=== PATIENT | male | born 1940 | race Caucasian/White ===

== ENCOUNTER 2016-06-21 11:49 | Inpatient (IN) | payer MEDICARE ==
[~2016-06-21] VITALS: Ht 167.6 cm; Wt 102.8 kg
[~2016-06-21 11:49] MED LIST: ASPI325T PO; DILTSR120 PO; DIOV80TA4 PO; GLIP5 PO; LOVA40TA PO; METF-324 PO; OMEP20TA PO; ZOLP10TA3 PO
[2016-06-21] MEDS ORDERED: PROPOFOL 200 MG/20 ML AMP IV ONE (12:00)
[2016-06-21] MEDS ORDERED: PHENYLEPH/NS 1000 MCG/10 ML SYR IV ONE (12:00)
[2016-06-21] MEDS ORDERED: ONDANSETRON HCL 4 MG/2 ML VIAL IV PUSH ONE (12:00)
[2016-06-21] MEDS ORDERED: SUGAMMADEX SODIUM 200 MG/2 ML VIAL IV PUSH ONE ×2 (12:00)
[2016-06-21] MEDS ORDERED: LACTATED RINGER'S 1000 ML INJ 1,000 ML IV ONE (12:00)
[2016-06-21 12:01] VITALS: BP 120/73; PULSE 83; RESP 16; TEMP 99.6; O2SAT 98
[2016-06-21 12:19] LABS: BLOOD, URINE NEG (NEG); GLUCOSE,URINE NEG (NEG); KETONE, URINE NEG (NEG); NITRITE,URINE NEG (NEG); PH, URINE 5.5 (5.0-8.5)
[2016-06-21] MEDS ORDERED: VALS1TAB64 PO (12:19)
[2016-06-21] MEDS ORDERED: PIOG30TA4 PO (12:19)
[2016-06-21] MEDS ORDERED: GABA300C5 PO ×2 (12:19→18:48)
[2016-06-21] MEDS ORDERED: OMEP20TA PO (12:19)
[2016-06-21] MEDS ORDERED: ZOLP10TA3 PO (12:19)
[2016-06-21] MEDS ORDERED: VITA10003 PO (12:19)
[2016-06-21] MEDS ORDERED: MULT1CHW70 (12:19)
[2016-06-21] MEDS ORDERED: POTA75TA PO (12:19)
[2016-06-21] MEDS ORDERED: GLIP5TAB8 PO (12:19)
[2016-06-21] MEDS ORDERED: VITA100T15 PO (12:19)
[2016-06-21] MEDS ORDERED: LOVA40TA PO (12:19)
[2016-06-21] MEDS ORDERED: STOO100C (12:19)
[2016-06-21] MEDS ORDERED: ASPI81CH CHEW (12:19)
[2016-06-21] MEDS ORDERED: FURO40TA PO (12:19)
[2016-06-21] MEDS ORDERED: DICL1CAP3 PO (12:19)
--- NOTE | 2016-06-21 12:25 | PD ---
HPI Chief Complaint: Complaint Time Seen by Provider: 12:19 Travel History International Travel<30 days: No Contact w/Intl Traveler<30days: No Traveled to known affect area: No History of Present Illness HPI Patient is a 75-year-old male who presents emergency for evaluation of fevers, abdominal pain, fatigue. Patient's daughter is present with him in the room. Daughter states on Friday patient started feeling more fatigued, he started having fevers yesterday approximately 6:30 PM his fever was 101.8, 11:30 PM last night his fever was 101.2, and at 6:30 AM his fever was 101.8. Patient was given acetaminophen after each elevated temperature. Patient reports lower abdominal pain worse on the right than the left as well as low back pain. He denies any history of chronic back pain. Patient had a knee replacement done on 05/20/16, after that he developed cellulitis and was on a 10 day course of Levaquin. Daughter reports significant improvement in the right knee since the surgery in regards to the edema and cellulitis. He states that he was too tired to complete his full course of physical therapy at home. He denies any dysuria but reports frequency feeling as if he has to go the bathroom immediately after he drinks anything. He reports the abdominal pain as a 3-4 out of 10 and states it's crampy and achy. PFSH Past Medical History Arthritis: Yes Atrial Fibrillation: Yes Cancer: No High Cholesterol: Yes Congestive Heart Failure: Yes Diabetes: Yes Patient Takes Glucophage: No Diminished Hearing: No GERD: Yes Hepatitis: No Hiatal Hernia: No Hypertension: Yes Insomnia: Yes Neurologic: Yes (essential tremor) Sleep Apnea: Yes (patient is not on CPAP) Thyroid Disease: No Past Surgical History Eye Surgery: Yes (left eye cataract removal;) Genitourinary Surgery: Yes (VASECTOMY) Pacemaker: No Other Surgery: Yes (right knee replacement, left shoulder repair) Family History Family History: Negative Social History Alcohol Use: No Tobacco Use: No Substance Use: No Allergies-Medications (Allergen,Severity, Reaction): Coded Allergies: No Known Allergies (Verified , 06/21/16) Reported Meds & Prescriptions Reported Meds & Active Scripts Active Reported Zolpidem (Zolpidem Tartrate) 10 Mg Tab 10 Mg PO HS PRN Vitamin B12 (Cyanocobalamin) 100 Mcg Tab 100 Mcg PO DAILY Multivitamin Adult (Multiple Vitamins W/ Minerals) 1 Chw Chw Potassium 75 Mg Tab 550 Mg PO DAILY Valsartan 80 Mg Tab 80 Mg PO DAILY Lovastatin 40 Mg Tab 40 Mg PO DAILY Gabapentin 300 Mg Cap 300 Mg PO BID Furosemide 40 Mg Tab 40 Mg PO DAILY Zorvolex (Diclofenac) 18 Mg Cap 75 Mg PO TID Pioglitazone (Pioglitazone HCl) 30 Mg Tab 30 Mg PO DAILY Omeprazole 20 Mg Tab 20 Mg PO DAILY Glipizide 5 Mg Tab 7.5 Mg PO BIDAC Take 30 minutes before a meal Stool Softener (Docusate Sodium) 100 Mg Cap Vitamin D-3 (Cholecalciferol) 1,000 Unit Tab 3,000 Units PO DAILY Aspirin 81 Mg Chew 81 Mg CHEW DAILY Review of Systems Except as stated in HPI: all other systems reviewed are Neg General / Constitutional: Positive: Fever, Chills, Other (fatigue) HENT: No: Headaches, Lightheadedness, Congestion Cardiovascular: No: Chest Pain or Discomfort Respiratory: No: Cough, Shortness of Breath Gastrointestinal: Positive: Abdominal Pain, No: Nausea, Vomiting, Diarrhea Genitourinary: Positive: Frequency Musculoskeletal: Positive: Myalgias Neurologic: Positive: Weakness, No: Dizziness, Syncope, Focal Abnormalities Physical Exam Narrative GENERAL: Obese, well-developed, alert, elderly male. Resting comfortably in no acute distress. Daughter at bedside. SKIN: Warm and dry. Healing incision to anterior right knee, mild erythema noted to the right lower leg. HEAD: Atraumatic. Normocephalic. EYES: Pupils equal and round. No scleral icterus. No injection or drainage. ENT: No nasal bleeding or discharge. Mucous membranes pink and moist. NECK: Trachea midline. No JVD. CARDIOVASCULAR: Regular rate and rhythm. No murmur appreciated. RESPIRATORY: No accessory muscle use. Clear to auscultation. Breath sounds equal bilaterally. GASTROINTESTINAL: Abdomen obese, soft, tender to palpation in right and left lower quadrants, the right is worse than the left. Positive bowel sounds. MUSCULOSKELETAL: No obvious deformities. No clubbing. No cyanosis. 1+ edema to bilateral lower extremities. Positive pedal pulses. NEUROLOGICAL: Awake and alert. No obvious cranial nerve deficits. Motor grossly within normal limits. Normal speech. PSYCHIATRIC: Appropriate mood and affect; insight and judgment normal. Data Data Last Documented VS Vital Signs Date Time Temp Pulse Resp B/P Pulse Ox O2 Delivery O2 Flow Rate FiO2 06/21/16 14:08 76 20 91/54 96 06/21/16 13:19 Auto-Vent 06/21/16 12:01 99.6 Orders Urinalysis - C+S If Indicated (06/21/16 12:03) Complete Blood Count With Diff (06/21/16 12:16) Comprehensive Metabolic Panel (06/21/16 12:16) Lactic Acid Sepsis Protocol (06/21/16 12:16) Blood Culture (06/21/16 12:16) Chest, Single Ap (06/21/16 12:16) Blood Glucose (06/21/16 12:16) Ecg Monitoring (06/21/16 12:16) Iv Access Insert/Monitor (06/21/16 12:16) Oximetry (06/21/16 12:16) Oxygen Administration (06/21/16 12:16) Acetaminophen (Tylenol) (06/21/16 12:30) Ct Abd/Pel W Iv Contrast(Rout) (06/21/16 12:16) Influenzae A/B Antigen (06/21/16 12:58) Sodium Chlorid 0.9% 500 Ml Inj (Ns 500 M (06/21/16 13:30) Iohexol 350 Inj (Omnipaque 350 Inj) (06/21/16 13:34) Admit Order (Ed Use Only) (06/21/16 14:08) Ampicillin-Sulbactam Inj (Unasyn Inj) (06/21/16 14:15) Labs Laboratory Tests Test 06/21/16 06/21/16 11:55 12:30 Urine Collection Type CLEAN CATCH Urine Color YELLOW Urine Turbidity CLEAR Urine pH 5.5 Urine Specific [place] 1.023 Urine Protein TRACE mg/dL Urine Glucose (UA) NEG mg/dL Urine Ketones NEG mg/dL Urine Occult Blood NEG Urine Nitrite NEG Urine Bilirubin NEG Urine Leukocyte Esterase NEG Urine RBC 0-3 /hpf Urine WBC 0-2 /hpf Urine Squamous Epithelial > 8 /hpf Cells Microscopic Urinalysis Comment CULT NOT INDICATED Urine Collection Time 11:55 White Blood Count 12.8 TH/MM3 Red Blood Count 3.88 MIL/MM3 Hemoglobin 10.7 GM/DL Hematocrit 32.5 % Mean Corpuscular Volume 83.8 FL Mean Corpuscular Hemoglobin 27.6 PG Mean Corpuscular Hemoglobin 32.9 % Concent Red Cell Distribution Width 18.8 % Platelet Count 146 TH/MM3 Mean Platelet Volume 8.5 FL Neutrophils (%) (Auto) 83.0 % Lymphocytes (%) (Auto) 7.9 % Monocytes (%) (Auto) 8.4 % Eosinophils (%) (Auto) 0.3 % Basophils (%) (Auto) 0.4 % Neutrophils # (Auto) 10.6 TH/MM3 Lymphocytes # (Auto) 1.0 TH/MM3 Monocytes # (Auto) 1.1 TH/MM3 Eosinophils # (Auto) 0.0 TH/MM3 Basophils # (Auto) 0.1 TH/MM3 CBC Comment AUTO DIFF Differential Comment AUTO DIFF CONFIRMED Sodium Level 142 MEQ/L Potassium Level 3.6 MEQ/L Chloride Level 105 MEQ/L Carbon Dioxide Level 27.2 MEQ/L Anion Gap 10 MEQ/L Blood Urea Nitrogen 25 MG/DL Creatinine 1.60 MG/DL Estimat Glomerular Filtration 42 ML/MIN Rate Random Glucose 114 MG/DL Lactic Acid Level 1.9 mmol/L Calcium Level 8.8 MG/DL Total Bilirubin 1.1 MG/DL Aspartate Amino Transf 15 U/L (AST/SGOT) Alanine Aminotransferase 12 U/L (ALT/SGPT) Alkaline Phosphatase 90 U/L Total Protein 6.9 GM/DL Albumin 2.9 GM/DL MDM Medical Decision Making Medical Screen Exam Complete: Yes Emergency Medical Condition: Yes Interpretation(s) Last Impressions Chest X-Ray 06/21/166 Signed Impressions: Service Date/Time: Tuesday, June 21, 2016 12:26 - CONCLUSION: No acute disease. Tony Morales MD FACR Vital Signs Date Time Temp Pulse Resp B/P Pulse Ox O2 Delivery O2 Flow Rate FiO2 06/21/16 13:19 95 Auto-Vent 06/21/16 12:01 99.6 83 16 120/73 98 Last Impressions Chest X-Ray 06/21/16 1216 Signed Impressions: Service Date/Time: Tuesday, June 21, 2016 12:26 - CONCLUSION: No acute disease. Tony Morales MD FACR Laboratory Tests Test 06/21/16 06/21/16 11:55 12:30 Urine Collection Type CLEAN CATCH Urine Color YELLOW Urine Turbidity CLEAR Urine pH 5.5 Urine Specific [place] 1.023 Urine Protein TRACE mg/dL Urine Glucose (UA) NEG mg/dL Urine Ketones NEG mg/dL Urine Occult Blood NEG Urine Nitrite NEG Urine Bilirubin NEG Urine Leukocyte Esterase NEG Urine RBC 0-3 /hpf Urine WBC 0-2 /hpf Urine Squamous Epithelial > 8 /hpf Cells Microscopic Urinalysis Comment CULT NOT INDICATED Urine Collection Time 11:55 White Blood Count 12.8 TH/MM3 Red Blood Count 3.88 MIL/MM3 Hemoglobin 10.7 GM/DL Hematocrit 32.5 % Mean Corpuscular Volume 83.8 FL Mean Corpuscular Hemoglobin 27.6 PG Mean Corpuscular Hemoglobin 32.9 % Concent Red Cell Distribution Width 18.8 % Platelet Count 146 TH/MM3 Mean Platelet Volume 8.5 FL Neutrophils (%) (Auto) 83.0 % Lymphocytes (%) (Auto) 7.9 % Monocytes (%) (Auto) 8.4 % Eosinophils (%) (Auto) 0.3 % Basophils (%) (Auto) 0.4 % Neutrophils # (Auto) 10.6 TH/MM3 Lymphocytes # (Auto) 1.0 TH/MM3 Monocytes # (Auto) 1.1 TH/MM3 Eosinophils # (Auto) 0.0 TH/MM3 Basophils # (Auto) 0.1 TH/MM3 CBC Comment AUTO DIFF Sodium Level 142 MEQ/L Potassium Level 3.6 MEQ/L Chloride Level 105 MEQ/L Carbon Dioxide Level 27.2 MEQ/L Anion Gap 10 MEQ/L Blood Urea Nitrogen 25 MG/DL Creatinine 1.60 MG/DL Estimat Glomerular Filtration 42 ML/MIN Rate Random Glucose 114 MG/DL Lactic Acid Level 1.9 mmol/L Calcium Level 8.8 MG/DL Total Bilirubin 1.1 MG/DL Aspartate Amino Transf 15 U/L (AST/SGOT) Alanine Aminotransferase 12 U/L (ALT/SGPT) Alkaline Phosphatase 90 U/L Total Protein 6.9 GM/DL Albumin 2.9 GM/DL Vital Signs Date Time Temp Pulse Resp B/P Pulse Ox O2 Delivery O2 Flow Rate FiO2 06/21/16 12:01 99.6 83 16 120/73 98 Differential Diagnosis Sepsis versus influenza versus pneumonia versus postop infection versus other Narrative Course Patient is a 75-year-old male who presented to emergency department with his daughter for evaluation of fevers, fatigue, abdominal pain. Patient started feeling poorly on Friday, he developed a fever last night. Patient had knee surgery approximately one month ago after which she developed cellulitis to the right knee and leg he was treated with a 10 day course of Levaquin at the rehabilitation center. Daughter states this has improved significantly however there is still an area of erythema to the right hinds. Patient's temperatures at home have been up to 101.8, his had been giving him acetaminophen which he responded well to. Patient was mildly febrile on presentation today. He was given acetaminophen by mouth. Labs and imaging ordered and pending. IV access initiated. CBC shows a mildly elevated white count with left shift, chemistry with slightly elevated BUN and creatinine, lactic acid is 1.9, urinalysis is unremarkable. Chest x-ray is unremarkable. Influenza was negative. CT scan of the abdomen and pelvis shows inflammatory changes in the right lower quadrant with a dilated appendix consistent with appendicitis. Patient was given dose of Zosyn. Dr. Molina, general surgeon was paged and notified of CT results. He will admit patient to his service. Patient to be transferred to the main campus. Discussed findings with patient and his daughter, all questions answered. Patient has not had anything to eat today, he had small intake of fluids this morning. Patient was given a total of 1500 cc of IV fluids. Vital signs are stable, he is afebrile currently. Diagnosis Primary Impression: Acute appendicitis Qualified Code: K35.80 - Acute appendicitis, unspecified acute appendicitis type Admitting Information Admitting Physician Requests: Admit Condition: Stable Pari Foreman Jun 21, 2016 12:25
[2016-06-21 12:29] LABS: METHOD OF COLLECTION CLEAN CATCH; URINE COLOR YELLOW (YELLW/STRAW); WBC, URINE 0-2 /hpf (0-5)
[2016-06-21 12:30] LABS: COMMENT (UR) CULT NOT INDICATED; CULTURE IF INDICATED CULT NOT INDICATED; RBC, URINE 0-3 /hpf (0-3); SQUAMOUS EPITHELIAL CELL URINE > 8 /hpf (0-5)
[2016-06-21] MEDS ORDERED: ACETAMINOPHEN 325 MG TAB PO ONE (12:30)
[2016-06-21 12:53] LABS: AUTOMATED NEUTROPHIL # 10.6 TH/MM3 (1.8-7.7); BASOPHIL # 0.1 TH/MM3 (0-0.2); BASOPHIL % 0.4 % (0.0-2.0); EOSINOPHIL % 0.3 % (0.0-4.0); HEMATOCRIT 32.5 % (39.0-51.0); HEMO FLAGS AUTO DIFF; LYMPH % 7.9 % (9.0-44.0); MEAN CELL VOLUME 83.8 FL (80.0-100.0); MEAN CORPUSCULAR HEMOGLOBIN 27.6 PG (27.0-34.0); MEAN CORPUSCULAR HGB CONC 32.9 % (32.0-36.0); MONO % 8.4 % (0.0-8.0); PLATELET COUNT 146 TH/MM3 (150-450); RED BLOOD COUNT 3.88 MIL/MM3 (4.50-5.90); RED CELL DISTRIBUTION WIDTH 18.8 % (11.6-17.2); WHITE BLOOD COUNT 12.8 TH/MM3 (4.0-11.0)
--- NOTE | 2016-06-21 12:54 | RADHPO ---
EXAM DATE/TIME: 06/21/2016 12:26 [facility] COMPARISON: CHEST SINGLE AP, January 30, 2012, 5:50. INDICATIONS : Congestion, fever. MEDICAL HISTORY : None. SURGICAL HISTORY : None. ENCOUNTER: Initial ACUITY: 2 days PAIN SCORE: 0/10 LOCATION: Bilateral chest FINDINGS: A single view of the chest demonstrates the lungs to be symmetrically aerated without evidence of mas s, infiltrate or effusion. The cardiomediastinal contours are unremarkable. Shoulder arthroplasty i s present on the left. CONCLUSION: No acute disease. Tony Morales MD FACR on June 21, 2016 at 12:52 Board Certified Radiologist. This report was verified electronically.
[2016-06-21 13:06] LABS: CHLORIDE 105 MEQ/L (98-107); POTASSIUM 3.6 MEQ/L (3.5-5.1); SODIUM (NA) 142 MEQ/L (136-145)
[2016-06-21 13:09] LABS: ANION GAP 10 MEQ/L (5-15); BICARBONATE 27.2 MEQ/L (21.0-32.0)
[2016-06-21 13:10] LABS: BLOOD UREA NITROGEN 25 MG/DL (7-18)
[2016-06-21 13:12] LABS: ALT (GPT) 12 U/L (12-78); AST (GOT) 15 U/L (15-37)
[2016-06-21 13:13] LABS: GLOMERULAR FILTRATION RATE 42 ML/MIN (>89)
[2016-06-21 13:14] LABS: TOTAL BILIRUBIN ADULT 1.1 MG/DL (0.2-1.0)
[2016-06-21 13:15] LABS: ALKALINE PHOSPHATASE 90 U/L (45-117)
[2016-06-21 13:19] VITALS: O2SAT 95
[2016-06-21 13:29] LABS: SCAN/DIFF AUTO DIFF CONFIRMED
[2016-06-21] MEDS ORDERED: SODIUM CHLORID 0.9% 500 ML INJ 500 ML IV ONE (13:30)
[2016-06-21] MEDS ORDERED: IOHEXOL 350 MG/ML 10 ML VIAL (for RAD DIAG) IV ONE (13:34)
[2016-06-21 14:08] VITALS: BP 91/54; PULSE 76; RESP 20; O2SAT 96
[2016-06-21] MEDS ORDERED: AMPICILLIN-SULBACTAM INJ 3 GM in SODIUM CHLORIDE 0.9% INJ 100 ML IV ONE (14:15)
--- NOTE | 2016-06-21 14:36 | RADHPO ---
EXAM DATE/TIME: 06/21/2016 13:24 [facility] COMPARISON: No previous studies available for comparison. INDICATIONS: Bilateral lower quadrant pain. Fever. IV CONTRAST: 75 cc Omnipaque 350 (iohexol) IV ORAL CONTRAST: No oral contrast ingested. RADIATION DOSE: 20.73 CTDIvol (mGy) MEDICAL HISTORY: Congestive heart failure. Gastroesophageal reflux disease. Diabetes mellitus type 2.Hypertension. SURGICAL HISTORY: ENCOUNTER: Initial ACUITY: 3 days PAIN SCALE: 4/10 LOCATION: Bilateral lower quadrant TECHNIQUE: Volumetric scanning of the abdomen and pelvis was performed. Using automated exposure control and ad justment of the mA and/or kV according to patient size, radiation dose was kept as low as reasonably achievable to obtain optimal diagnostic quality images. FINDINGS: Lung bases are clear. Liver is free of focal defects. Spleen, pancreas, adrenals are unremarkable. There are simple cysts in both kidneys. There are inflammatory changes in the right lower quadrant with a dilated appendix consistent with ap pendicitis. Minimal diverticula are present in the sigmoid colon. Bladder, prostate and seminal vesicles are unre markable. CONCLUSION: CT scan would be consistent with acute appendicitis. Tony Morales MD FACR on June 21, 2016 at 13:44 Board Certified Radiologist. This report was verified electronically.
[2016-06-21] MEDS ORDERED: SODIUM CHLOR 0.9% 1000 ML INJ 1,000 ML IV ONE (15:15)
[2016-06-21 15:25] VITALS: BP 112/55; PULSE 76; RESP 20; O2SAT 98
[2016-06-21 16:01] LABS: PROTHROMBIN TIME - PATIENT 11.4 SEC (9.8-11.6)
[2016-06-21] MEDS ORDERED: METOPROLOL TARTRATE 25 MG TAB PO PRN ×2 (17:15→19:00)
[2016-06-21] MEDS ORDERED: INSULIN HUMAN REGULAR 1,000 UNITS/10 ML VIAL SQ PRN ×2 (17:15→19:00)
[2016-06-21] MEDS ORDERED: LACTATED RINGER'S 1000 ML IV SCH ×2 (18:00→19:00)
[2016-06-21] MEDS ORDERED: SODIUM CHLORID 0.9% 500 ML IV SCH ×2 (18:00→19:00)
[2016-06-21] MEDS ORDERED: PERC5TAB12 PO (18:49)
[2016-06-21] MEDS ORDERED: PIPERACIL-TAZO 3.375 GM PREMIX 50 ML IV ONE (19:30)
[2016-06-21] MEDS ORDERED: BUPIVACAINE HCL PF 0.5% 30 ML VIAL ONE (20:22)
[2016-06-21] MEDS ORDERED: fentaNYL CITRATE 250 MCG/5 ML AMP ONE (20:41)
[2016-06-21] MEDS ORDERED: DO NOT ADM ANY ANTICOAGULANT DRUGS XX PRN (21:00)
[2016-06-21] MEDS ORDERED: MEPERIDINE HCL 25 MG/ML VIAL ONE (21:19)
[2016-06-21] MEDS ORDERED: *ONDANSETRON 4 MG VIAL PERIprocedural Use ONLY ONE (21:26)
[2016-06-21] MEDS ORDERED: *morphine SULFATE 8 MG/ML PERIprocedure ONLY ONE ×2 (21:26→21:44)
[2016-06-21] MEDS ORDERED: ZOLPIDEM TARTRATE 10 MG TAB PO PRN (21:45)
[2016-06-21] MEDS ORDERED: PILL SPLITTER OTHER PRN (21:45)
[2016-06-21] MEDS ORDERED: oxyCODONE/ACETAMINOPHEN 5 MG/325 MG TAB PO PRN (21:45)
[2016-06-21 22:35] VITALS: BP 101/55; PULSE 77; RESP 20; TEMP 98.8; O2SAT 97
[2016-06-22] MEDS: PIPERACIL-TAZO 3.375 GM PREMIX 50 ML IV SCH ×2 (03:00→10:22)
[2016-06-22 04:00] VITALS: BP 113/55; PULSE 80; RESP 18; TEMP 98.7; O2SAT 98
[2016-06-22] MEDS ORDERED: glipiZIDE 5 MG TAB PO SCH (07:00)
[2016-06-22 08:00] VITALS: BP 109/58; PULSE 77; RESP 16; TEMP 98; O2SAT 96
[2016-06-22] MEDS ORDERED: PIOGLITAZONE HCL 30 MG TAB PO SCH (09:00)
[2016-06-22] MEDS ORDERED: FUROSEMIDE 40 MG TAB PO SCH (09:00)
[2016-06-22] MEDS ORDERED: GABAPENTIN 300 MG CAP PO SCH (09:00)
[2016-06-22] MEDS ORDERED: CHOLECALCIFEROL (VIT D3) 1000 UNIT TAB PO SCH (09:00)
[2016-06-22] MEDS ORDERED: PANTOPRAZOLE SOD 20 MG DELAYED RELEASE TAB PO SCH (09:00)
[2016-06-22] MEDS ORDERED: VALSARTAN 80 MG TAB PO SCH (09:00)
[2016-06-22] MEDS ORDERED: PRAVASTATIN SOD 40 MG TAB PO SCH (09:00)
[2016-06-22 12:00] VITALS: BP 98/50; PULSE 63; RESP 16; TEMP 96; O2SAT 98
--- NOTE | 2016-06-22 14:02 | PD.CAR.PN ---
CVT Progress Note Subjective/Hospital Course: 06/22/16 Status post laparoscopic appendectomy for the acute purulent appendicitis Incisions are clean and dry Abdomen is soft with active bowel sounds and patient's passing gas Tenderness is minimal Discharge patient today Objective: Vital Signs Date Time Temp Pulse Resp B/P Pulse Ox O2 Delivery O2 Flow Rate FiO2 06/22/16 08:00 77 06/22/16 08:00 98.0 77 16 109/58 96 06/22/16 04:00 98.7 80 18 113/55 98 06/21/16 22:35 98.8 77 20 101/55 97 06/21/16 22:15 97.8 79 16 126/58 100 Room Air 06/21/16 22:00 79 17 120/57 100 06/21/16 21:45 79 14 123/55 100 Nasal Cannula 2 06/21/16 21:30 79 14 123/68 100 Nasal Cannula 2 06/21/16 21:15 81 18 138/64 100 Nasal Cannula 3 06/21/16 21:05 98.3 76 16 169/68 96 Nasal Cannula 3 06/21/16 18:32 98.5 74 18 144/61 99 06/21/16 15:25 76 20 112/55 98 06/21/16 14:08 76 20 91/54 96 Result Diagram: 06/21/16 1230 06/21/16 1230 Shravan Molina MD Jun 22, 2016 14:02
--- NOTE | 2016-06-24 23:01 | EKG ---
Date Performed: 06/21/2016 Time Performed: 16:11:44 PTAGE: 75 years EKG: Sinus rhythm with 1st degree A-V block Nonspecific ST and T wave abnormalities Abnormal ECG PREVIOUS TRACING : 01/30/2012 11.12 Compared to prior tracing no significant change DOCTOR: Gigi Bermudez Interpretating Date/Time 06/24/2016 23:00:23
--- NOTE | 2016-06-26 10:53 | MP ---
cc: FRANCO KNIGHT MD DATE OF SURGERY: 06/21/2016 PREOPERATIVE DIAGNOSIS Acute appendicitis. POSTOPERATIVE DIAGNOSIS Acute appendicitis. PROCEDURE Laparoscopic appendectomy. SURGEON Tracy ANESTHESIA General. ESTIMATED BLOOD LOSS 20 cc. INDICATION FOR PROCEDURE This pleasant 75-year-old gentleman was transferred from [facility] to our institution with abdominal pain, nausea and vomiting. CT scan and clinical exam are consistent with acute appendicitis and hence the surgery. The patient is prepped and draped in the usual fashion. A supraumbilical incision is made and deepened down to the fascia and the fascia opened under direct vision. A Fani cannula is placed. The abdomen is insufflated with CO2 and the camera is placed. The patient is positioned in Trendelenburg with a tilt. The suprapubic and left lower quadrant ports are placed, respectively 5 and 10 mm. The abdomen is then explored with a 30-degree camera in quadrants. No other abnormalities are found. There is some inflammation in the right lower quadrant. Bowel was pushed aside and it is obvious that the appendix in the pelvic position is swollen, red and purulent. The appendix is carefully teased from the retroperitoneum and then grasped with a clamp and elevated. The [place] dissector is now used to make a hole in the mesoappendix at the base of the appendix and then sachin are fired using 45 mm white Endo ANGIE load. This is fired over the appendix and the second one over the mesentery. The appendix is now delivered through the umbilical incision using an EndoCatch bag. The area is irrigated with copious amounts of saline, meticulous hemostasis assured. The instruments are withdrawn. The incisions are closed with 2-0 Vicryl and 4-0 Monocryl. The patient tolerated the procedure well. Franco LORA/NANCY /9:34 PM /10:46 AM
--- NOTE | 2016-07-20 18:41 | MH ---
cc: SHRAVAN KNIGHT MD DATE OF ADMISSION: 06/21/2016 ADMITTING DIAGNOSIS: Acute appendicitis. HISTORY OF PRESENT ILLNESS: This 75-year-old male presented to the emergency room for evaluation of pain. The patient states the pain had started about a day ago with fevers. The pain was mainly midabdomen and then switched to the right lower quadrant. The patient did not want to go to hospital and finally was brought in by his family. He recently had a knee replacement and just could not work out. The patient was worked up and found to have acute appendicitis. PAST MEDICAL HISTORY: 1. Atrial fibrillation. 2. Congestive heart failure. 3. Hypercholesterolemia. 4. Hypertension. 5. Insomnia. 6. Tremor. 7. Sleep apnea. PAST SURGICAL HISTORY: 1. Vasectomy. 2. Knee replacement just recently. 3. Left shoulder repair. PHYSICAL EXAMINATION: GENERAL: The physical examination reveals a 75-year-old male in moderate distress. HEAD, EYES, EARS, NOSE, THROAT: Normocephalic. No trauma to the head. Pupils equal and reactive. Extraocular muscles intact. NECK: The neck is supple. Bilateral carotid pulses. CHEST: Bilateral breath sounds, somewhat decreased over both lung bases. HEART: Irregular rhythm. The patient is in slow atrial fibrillation. ABDOMEN: Soft. Hyperactive bowel sounds. Tender in the right lower quadrant and mid-abdomen where there is positive rebound and guarding. EXTREMITIES: Within normal limits. ASSESSMENT: Patient with acute appendicitis for immediate appendectomy. Shravan LORA/HERNAN /6:24 PM /6:35 PM
== END 2016-06-22 14:56 | disposition home or self-care (01) | DRG 343 ==
LOC: PHEFT 11:49 → PHEDA 14:12 → HSDI 18:22 → N06B 22:29
PROVIDERS: ADMIT Surgery; ATTEND Surgery
PROC: 0DTJ4ZZ Resection of Appendix, Percutaneous Endoscopic Approach (ICD-10-PCS; principal; 2016-06-21 19:47)
DX: K35.80 Unspecified acute appendicitis (principal); I50.9 Heart failure, unspecified; I48.91 Unspecified atrial fibrillation; I11.0 Hypertensive heart disease with heart failure; E11.9 Type 2 diabetes mellitus without complications; K21.9 Gastro-esophageal reflux disease without esophagitis; G25.0 Essential tremor; G47.30 Sleep apnea, unspecified; G47.00 Insomnia, unspecified; Z96.651 Presence of right artificial knee joint; Z79.84 Long term (current) use of oral hypoglycemic drugs
CPT/HCPCS: 71010; 74177; 80053; 81001; 82948; 83605; 85025; 85610; 87040; 87804; 88304; 93005; 96360; J0295; J2175; J2270; J2370; J2405; J2543; J3010; J7030; J7040; J7120; Q9967